=== PATIENT | female | born 1980 | race Caucasian/White ===

== ENCOUNTER 2020-09-16 14:53 | Emergency (ER) | payer OTHER ==
[2020-09-16 18:09] LABS: HEMOGLOBIN 10.7 gm/dl (12.3-15.3); RED BLOOD COUNT 4.86 M/UL (4.00-5.10); WHITE BLOOD COUNT 9.1 K/UL (4.5-11.0)
[2020-09-16 18:38] LABS: BUN/CREATININE RATIO 14 (0-10)
== END 2020-09-16 21:30 | disposition home or self-care (01) ==
LOC: ER1 14:53
PROVIDERS: Emergency Medicine
DX: R00.0 Tachycardia, unspecified (principal); Z86.16 Personal history of COVID-19
CPT/HCPCS: 80053; 82550; 82553; 83874; 83880; 84484; 85025; 93005; 99285; Q9967

== ENCOUNTER → 2020-10-03 | Outpatient (CLI) | payer OTHER | LOC: EXRD 13:17 | DX: E04.1 Nontoxic single thyroid nodule (principal) | CPT/HCPCS: 76536 ==